=== PATIENT | female | born 1990 | race African-American/Black ===

== ENCOUNTER 2018-01-11 13:26 | Emergency (ER) | payer BC, SELFPAY | END 2018-01-11 14:05 | disposition home or self-care (01) | LOC: ERS 13:26 | DX: J06.9 Acute upper respiratory infection, unspecified (principal) | CPT/HCPCS: 99283 ==

== ENCOUNTER 2018-10-27 15:59 | Emergency (ER) | payer SELFPAY | END 2018-10-27 16:20 | disposition home or self-care (01) | LOC: ERS 15:59 | DX: N91.2 Amenorrhea, unspecified (principal); F41.9 Anxiety disorder, unspecified; F32.9 Major depressive disorder, single episode, unspecified | CPT/HCPCS: 99281 ==

== ENCOUNTER 2018-11-20 09:23 | Day surgery (SDC) | payer MEDICAID ==
[2018-11-20 09:57] VITALS: BP 123/84; TEMP 98.3
[2018-11-20 10:03] VITALS: BMI 39.2
[2018-11-20] MEDS ORDERED: Ondansetron ODT 4 MG TAB PO PRN (11:16)
[2018-11-20] MEDS ORDERED: hydrALAZINE 20 MG/ML VIAL SLOW IVP PRN (11:17)
[2018-11-20] MEDS ORDERED: Acetaminophen 500 MG TAB PO SCH (11:30)
--- NOTE | 2018-11-20 11:48 | PDOC.FPROB ---
FMR OB H&P: Medications - Current Home Medications: Medication Instructions Recorded Confirmed Type Acetaminophen [Tylenol Extra 650 mg PO Q6H PRN 30 Days #60 tab 11/20/18 Rx Strength] Cephalexin [Keflex] 1 tab PO BID 11/20/18 11/20/18 History Ferrous Sulfate 325 mg PO BID 30 Days #60 tablet 11/20/18 Rx Ondansetron [Zofran ODT] 4 mg PO Q6H PRN 30 Days #30 tab 11/20/18 Rx Allergies/Adverse Reactions: Allergies Allergy/AdvReac Type Severity Reaction Status Date / Time No Known Allergies Allergy Verified 11/20/18 10:00 FMR OB H&P: Vital Signs - Maternal Vital signs: Vital Signs - First Documented Temp Pulse Resp BP Pulse Ox 98.3 F 101 H 18 123/84 99 11/20/18 09:09 11/20/18 09:09 11/20/18 09:09 11/20/18 09:09 11/20/18 09:09 FMR OB H&P: A/P - Problem List (1) Status: Acute (2) Neurofibromatosis, type 1 Status: Acute Discussion: Date/Time: 11/20/18 1146 This H&P was discussed with [] and [] who agree with the above documentation and plan. Signature: PCP: Krishna HPI: This is a 28 yo female at 35.1 wks by 33.4 wk US who comes in for diffuse body aches. She was scheduled for MRI this AM but was unable to complete the MRI because it hurt to much to lay on her back for the 30 minutes required for the test. She states she has had nausea and vomiting going on for a weeks, vomits 1-2 times per day, no blood. She denies fevers, chills, or sweats. She complains of upper and lower back pain, achy. Better with rest. Also complains of abdominal pain more on the right side, she does not really remember what contractions feel like but does not think it is like contractions. Pain is worse when laying on her back. She denies trying any Tylenol at home. Was able to eat steak and fries for supper last night without and vomiting. Denies burning or blood with urination. She affirms movement, denies cxns, ROM, bleeding/discharge. Denies SOTO, visual changes, SOB, or swelling. History: OB hx: emergency after cytotec placement per patient report PMH: NF-1, anxiety PSH: c/s x1 Meds: PNV, iron, sertraline (stopped 2 months ago) All: NKDA Soc Hx: denies smoking, alcohol, drugs Fam Hx: denies downs, congenital defects REVIEW OF SYSTEMS: Gen: no fever, chills, or sweats Neuro: no numbness/tingling, no weakness, denies headache ENT: denies congestion Eyes: no visual changes Resp: occasional cough, no production, no SOB, no wheeze Card: denies chest pain, no palpitations GI: see hpi : no dysuria, no hematuria Skin: no rash, no erythema Psych: denies hx anxiety/depression Vitals: T: 98.3 R: 18 BP: 123/84 P:67 at: 98% on RA PHYSICAL EXAMINATION: General: NAD, alert and oriented x3 HEENT: EOMI, normal sclera Neck: Supple. Full ROM. Heart/Cardiovascular System: RRR, Cap refill < 3 seconds, no rub, no murmur Lungs/Respiratory System: clear to auscultation bilaterally. No increased work of breathing. Room air. Abdomen/Gastro-Intestinal System: no abdominal tenderness, normal bowel sounds, Gravid, pain to deep palpation of round ligament on R, no guarding, soft Extremities: Warm extremities. No cyanosis or edema. Neuro: No gross deficits appreciated Psychiatry: Awake, Alert and cooperative with exam Skin: Stable fibromas Musculoskeletal: Full ROM A/P: This is a 28 yo female at 35.1 wks by 33.4 wk US presenting for body aches FHT: 140 baseline, mod variability, no decels, accels present [place]: irregular contractions, resolved with PO hydration # - GBS taken - Tolerated PO hydration - Has follow up today in clinic at 3pm - Closed/thick/posterior, no change after 2 hours # Round ligament pain - Sent Rx for Tylenol, Zofran - Return precautions discussed at length # NF 1 - unable to tolerate MRI, paged M for delivery recs, awaiting return call Addendum - Attending - Attending Attestation Date/Time: 11/20/18 5619 I personally evaluated the patient and discussed the management with Dr. Simeon I agree with the History, Examination, Assessment and Plan documented above with any addition or exceptions noted below. No evidence of labor. Educated on common pains in late . Return precautions reviewed
--- NOTE | 2018-11-20 11:54 | PDOC.FPROB ---
FMR OB H&P: Medications - Current Home Medications: Medication Instructions Recorded Confirmed Type Acetaminophen [Tylenol Extra 650 mg PO Q6H PRN 30 Days #60 tab 11/20/18 Rx Strength] Cephalexin [Keflex] 1 tab PO BID 11/20/18 11/20/18 History Ferrous Sulfate 325 mg PO BID 30 Days #60 tablet 11/20/18 Rx Ondansetron [Zofran ODT] 4 mg PO Q6H PRN 30 Days #30 tab 11/20/18 Rx Allergies/Adverse Reactions: Allergies Allergy/AdvReac Type Severity Reaction Status Date / Time No Known Allergies Allergy Verified 11/20/18 10:00 FMR OB H&P: Vital Signs - Maternal Vital signs: Vital Signs - First Documented Temp Pulse Resp BP Pulse Ox 98.3 F 101 H 18 123/84 99 11/20/18 09:09 11/20/18 09:09 11/20/18 09:09 11/20/18 09:09 11/20/18 09:09 FMR OB H&P: A/P - Problem List (1) Current Visit: Yes Status: Acute (2) Neurofibromatosis, type 1 Current Visit: Yes Status: Acute Discussion: Date/Time: 11/20/18 1151 This H&P was discussed with [] and [] who agree with the above documentation and plan.
== END 2018-11-20 12:40 | disposition home or self-care (01) ==
LOC: L&D/OP 09:23
PROVIDERS: ATTEND Family Medicine
DX: O99.89 Other specified diseases and conditions complicating pregnancy, childbirth and the puerperium (principal); Q85.01 Neurofibromatosis, type 1; R10.2 Pelvic and perineal pain; Z79.2 Long term (current) use of antibiotics; Z3A.35 35 weeks gestation of pregnancy
CPT/HCPCS: 87077; 87081; 99284; Q0162

== ENCOUNTER 2018-11-29 19:04 | Day surgery (SDC) | payer MEDICAID, OTHER ==
[~2018-11-29 19:04] MED LIST: Acetaminophen 500 MG TAB PO SCH
[2018-11-29 19:37] VITALS: BP 118/68; TEMP 98
[2018-11-29 19:38] VITALS: BMI 36.9
[2018-11-29] MEDS ORDERED: hydrALAZINE 20 MG/ML VIAL SLOW IVP PRN (19:43)
[2018-11-29] MEDS ORDERED: Acetaminophen 500 MG TAB PO SCH (19:45)
--- NOTE | 2018-11-29 19:55 | PDOC.FPROB ---
FMR OB H&P: HPI - History of Present Illness Chief Complaint: back pain and pressure in bottom History of Present Illness: 28 y/o , @36.3 wks presents to the L&D for back pain and pressure in her bottom. She states this started last night and has been constant, 10/10 and radiating down her bilateral lower extremities. She has never experienced this before. Denies any LOF, VB, VD, and states she feels baby moving. Pt c/o of SOB worse with exertion. Denies any chest pain. c/o headache 5/10. c/o anxiousness. Primary Care Physician: Dr. Simeon. FMR OB H&P: Current - Care : 2 Para: 1 Gestational age: 36.3 Due date: repeat scheduled 12/19. - OB Labs Blood type: O RH: positive Antibody Screen: negative HIV: negative RPR: negative HepBsAg: negative Rubella: immune Urine drug screen: negative Gonorrhea: negative Chlamydia: negative A1c: 4.9 GBS: unknown FMR OB H&P: History - Past Medical History PMH: NF 1 with neurofibromas and brain tumor, anxiety, depression - OB History OB History: prior for failure to dilate. - RECOVERY COORDINATOR History RECOVERY COORDINATOR History: ASCUS HPV + - Surgical History Sx History: 2013 - Social History Social History: denies etoh, tobacco and drug use. Feels safe at home. - Family History Family History: NF1 in father mother: DM, HTN, HLD FMR OB H&P: Medications - Current Home Medications: Medication Instructions Recorded Confirmed Type Ferrous Sulfate 325 mg PO BID 30 Days #60 tablet 11/20/18 11/29/18 Rx Ondansetron [Zofran ODT] 4 mg PO Q6H PRN 30 Days #30 tab 11/20/18 11/29/18 Rx Amoxicillin 875 mg PO BID #14 tablet 11/29/18 Rx Allergies/Adverse Reactions: Allergies Allergy/AdvReac Type Severity Reaction Status Date / Time No Known Allergies Allergy Verified 11/29/18 19:40 FMR OB H&P: ROS - Review of Systems General: reports: fatigue. denies: fever/chills, weight/appetite/sleep changes Eyes: denies: eye pain, double vision, scotomas ENT: denies: nasal congestion, rhinorrhea, sore throat Cardiovascular: denies: chest pain, palpitation, edema Respiratory: reports: shortness of breath, exercise intolerance. denies: cough , congestion Gastrointestinal: reports: abdominal pain, cramping, nausea, vomiting, diarrhea. denies: constipation, bright red blood, dark black tarry stools Genitourinary (Female): reports: vaginal pressure. denies: incontinence, dysuria, hematuria, polyuria, hesitancy, vaginal discharge, vaginal pain, vaginal bleeding, contractions Musculoskeletal: reports: pain (back pain) Neurologic: reports: headache. denies: numbness, syncope, weakness, loss of counsciousness Integumentary: reports: lesions (neurofibromas). denies: rash Endocrine: denies: polyuria Psychological: reports: anxiety. denies: depression FMR OB H&P: Vital Signs - Maternal Vital signs: Vital Signs - First Documented Temp Pulse Resp BP 98.0 F 98 20 118/68 11/29/18 19:36 11/29/18 19:36 11/29/18 19:36 11/29/18 19:36 - Heart Tones Baseline: 130 Variability: moderate Acceleration: present [place] contractions every: none FMR OB H&P: Physical Exam - Physical Exam General: NAD, awake, alert and oriented HEENT: normocephalic and atraumatic, PERRLA, EOMI, MMM, conjunctiva clear, no scleral icterus, grossly normal vision, grossly normal hearing Neck: supple, FROM, trachea midline, no LAD Chest: non-tender to palpation Heart: RRR, normal S1/S2, no murmurs/rubs/gallops, pulses present, no edema General: CTAB, no respiratory distress, good air movement, no rales/rhonchi, no wheezing, no retractions Abdomen: soft, gravid, bowel sound present Deviation from normal: epigastric tenderness Musculoskeletal: normal gait and station, pulses present, FROM in all four extremities, no misalignment/asymmetry, no atrophy Neurological: sensation to pain,touch and proprioception grossly normal, DTR +2 , no clonus, no tremor, no focal deficit Skin: no rash Deviation from normal: neurofibromas on LUE X2, 5 cm in size. Lymphatic: no unusual bruising or bleeding Psychiatric: intact recent and remote memory, good judgement and insight, normal mood and affect FMR OB H&P: Results - Labs Lab results: Laboratory Tests 11/29/18 21:17 Urine Protein 50 A Urine Nitrite 2+ A Ur Leukocyte Esterase 75 A Urine RBC 4-6 A Urine WBC 11-20 A Calcium Oxalate Crystal 1+ A Urine Bacteria 4+ A Urine Culture Reflexed Yes A FMR OB H&P: A/P Disposition: Pt Stable UTI found, will treat with outpatient amoxicillin. Discharge to home. Discussion: Date/Time: 11/29/18 1950 28 y/o , at 36.3 wks evaluated for back pain radiating down bilateral LE. 1. IUP @ 36.3 weeks gestation -Pt not in labor 2. Hx of NF 1 -[facility] recommends repeat -scheduled on 12/19/18 3. Acute UTI, most likely secondary to cystitis - Prescribed X7 days of Amoxicillin 875 mg BID. - Sent results for CCx. 4. Acute back pain -Most likely secondary to the UTI - Responded to Tylenol 1000 mg This H&P was discussed with Dr. Peter and Dr. Gray who agree with the above documentation and plan.
[2018-11-29 21:27] LABS: Bacteria/HPF 4+ HPF (None Seen); Bilirubin Negative (Negative); Blood, Urine Negative (Negative); Calcium Oxalate Crystals 1+ HPF (None Seen); Clarity Clear (Clear); Glucose, Urine (Dipstick) Normal (Negative); Leukocyte 75 Leu/uL (Negative); Nitrite 2+ (Negative); Protein, Urine (Dipstick) 50 mg/dL (Neg-Trace); Squamous Epithelial 0-3 HPF (0-3)
[2018-11-29 21:29] LABS: Urine Culture Reflex Yes Yes
== END 2018-11-29 21:56 | disposition home or self-care (01) ==
LOC: L&D/OP 19:04
PROVIDERS: ATTEND Family Medicine
DX: O23.43 Unspecified infection of urinary tract in pregnancy, third trimester (principal); O99.89 Other specified diseases and conditions complicating pregnancy, childbirth and the puerperium; M54.9 Dorsalgia, unspecified; Z3A.36 36 weeks gestation of pregnancy
CPT/HCPCS: 81001; 87077; 87086; 87186; 99283

== ENCOUNTER 2018-12-19 08:48 | Inpatient (IN) | payer MEDICAID, OTHER ==
--- NOTE | 2018-12-19 06:29 | PDOC.FPROB ---
FMR OB H&P: Medications - Current Home Medications: Medication Instructions Recorded Confirmed Type Ferrous Sulfate 325 mg PO BID 30 Days #60 tablet 11/20/18 12/19/18 Rx Sertraline HCl [Zoloft] 1 tab PO DAILY 12/19/18 12/19/18 History Allergies/Adverse Reactions: Allergies Allergy/AdvReac Type Severity Reaction Status Date / Time No Known Allergies Allergy Verified 11/29/18 19:40 FMR OB H&P: A/P - Problem List (1) Anemia affecting Current Visit: No Status: Acute Code(s): O99.019 - ANEMIA COMPLICATING , UNSPECIFIED TRIMESTER (2) Obesity (BMI 30-39.9) Current Visit: No Status: Acute Code(s): E66.9 - OBESITY, UNSPECIFIED (3) Neurofibromatosis, type 1 Current Visit: No Status: Acute (4) Current Visit: No Status: Acute Discussion: Date/Time: 12/19/18613 PCP: Krishna HPI: This is a 28 yo female at 39.2 wks by 33 wk US/LMP presenting for scheduled repeat c/s. No complaints at this time. She affirms movement, denies cxns, ROM, bleeding/discharge. Denies SOTO, visual changes, SOB, or swelling. History: OB hx: emergency after cytotec placement per patient report PMH: NF-1, anxiety, anemia PSH: c/s x1 Meds: PNV, iron, sertraline (stopped in 2nd trimester) All: NKDA Soc Hx: denies smoking, alcohol, drugs Fam Hx: denies downs, 1 son has NF-1 and lives with grandmother per CPS intervention GBS: Positive Blood type: O+ Ab screen: neg HIV: neg RPR: neg Hep B: neg Rubella: immune GC/CT: pending A1c: 4.9 REVIEW OF SYSTEMS: Gen: no fever, chills, or sweats Neuro: no numbness/tingling, no weakness, denies headache ENT: denies congestion Eyes: no visual changes Resp: occasional cough, no production, no SOB, no wheeze Card: denies chest pain, no palpitations GI: denies N/V/D : no dysuria, no hematuria Skin: no rash, no erythema Psych: denies hx anxiety/depression Vitals: T: 98.3 R: 18 BP: 122/86 P:88 at: 98% on RA PHYSICAL EXAMINATION: General: NAD, alert and oriented x3 HEENT: EOMI, normal sclera Neck: Supple. Full ROM. Heart/Cardiovascular System: RRR, Cap refill < 3 seconds, no rub, no murmur Lungs/Respiratory System: clear to auscultation bilaterally. No increased work of breathing. Room air. Abdomen/Gastro-Intestinal System: no abdominal tenderness, normal bowel sounds, Gravid Extremities: Warm extremities. No cyanosis or edema. Neuro: No gross deficits appreciated Psychiatry: Awake, Alert and cooperative with exam Skin: Stable fibromas affecting LUE Musculoskeletal: Full ROM A/P: This is a 28 yo at 39.1 weeks by sure LMP/33wk US per [facility] recs EDD12/24/18 presenting for scheduled repeat section FHT: 120 baseline, mod variability, no decels, accels present [place]: irregular contractions 1) . O+. A1C 4.9. IOB labs reviewed. G/CT ordered with Pap and not resulted per chart review, repeated 12/18. Patient never got GTT testing done even though counseled on risks. GBS+ from [place]. 2) NF-1 - MRI ordered per [facility] recs, pt tried to get done a few weeks ago but unable due to pain and not able to sit still. Was evaluated in OB triag, called [facility] they said MRI could wait until post . - Urgent referral for Neuro placed, patient has not established appt. 3) Anemia of pregnacy. hgb 9.7-> 10.7. On PO iron. 4) Asymptomatic UTI. s/p keflex, BERTHA negative. 5) Social Discored. CPS case open on first child, living with grandmother. CASA case hardener following along with this . Pt having hard time getting food. Had pt talk with social manager of exhibitions and collections in clinic. Stated they didn't want our food and wanted meat but having hard time due to rides. - CPS worker is aware of scheduled C/S. CPS will evaluate parental fitness in hospital setting 6) Anxiety- well controlled excited for delivery 7) LGA- measured at [facility] above 99% on first U/S repeat on 11/30 showed [place] 95% , 86% on 12/08. 8) Fam hx: NF in father and child, DM, HTN, HF, ESRD 9) Wt gain: BMI 34, down 6 lbs from max weight. Up 18 lbs since presenting to care. 10) ASCUS, HRHPV: 6 wk PP colpo
[~2018-12-19 08:48] MED LIST changes: +Acetaminophen 500 MG TAB PO PRN; -Acetaminophen 500 MG TAB PO SCH; +Bicitra 30 ML UDCUP PO SCH; +CEFAZOLIN 2 GM in Premix Bag 1 BAG IVPB SCH; +Ondansetron PF 4 MG/2 ML Vial IVP PRN; +Promethazine HCl 25 MG/ML VIAL IM PRN; +hydrALAZINE 20 MG/ML VIAL SLOW IVP PRN
[2018-12-19 09:43] VITALS: BMI 37.0
[2018-12-19 10:27] LABS: Syphilis Antibody Nonreactive (Nonreactive); Syphilis Antibody Index 0.07 S/CO (<1.00 Non-Reactive)
[2018-12-19 10:28] LABS: HBSAg Index 0.14 S/CO (0-0.99); Hep B Surf Ag Non-Reactive S/CO (NonReactive)
[2018-12-19 10:43] LABS: Hemoglobin 10.8 g/dL (12.0-16.0); Mean Corpuscular HGB CONC 33.5 g/dL (32.0-36.0); Mean Corpuscular Hemoglobin 27.1 pg (27.0-31.0); Mean Corpuscular Volume 80.9 fL (78.0-98.0); Mean Platelet Volume 14.2 fL (7.4-10.4); Platelet Count 124 thou/uL (130-400); RBC Distribution Width 20.5 % (11.5-14.5); Red Blood Cell (RBC) Count 3.99 mill/uL (4.20-5.40)
[2018-12-19] MEDS ORDERED: Rocuronium Bromide 10 MG/ML (10ML VIAL) ONE (11:52)
[2018-12-19] MEDS ORDERED: Succinylcholine Chloride 20 MG/ML 10 ml SYRINGE FS ONE (11:52)
[2018-12-19] MEDS ORDERED: Fentanyl 100 MCG/2 ML VIAL ONE ×2 (11:52→12:29)
[2018-12-19] MEDS ORDERED: PROPOFOL 20 ML ONE (11:52)
[2018-12-19] MEDS ORDERED: Lidocaine 1% PF 5 ML VIAL ONE (11:52)
[2018-12-19] MEDS ORDERED: PHENYLEPHRINE-NS 100 MCG/ML 10 ML SYRINGE ONE (11:53)
[2018-12-19] MEDS ORDERED: ePHEDrine/0.9% NaCl/PF SYRINGE 50 mg/10 ml ONE (11:53)
[2018-12-19] MEDS ORDERED: Oxytocin 10 UNITS/ML VIAL ONE ×2 (11:54→12:37)
[2018-12-19] MEDS ORDERED: Ondansetron PF 4 MG/2 ML Vial ONE (11:54)
[2018-12-19] MEDS ORDERED: Midazolam HCl 2 mg/2 ml Vial ONE (11:58)
[2018-12-19] MEDS: Lactated Ringer's 1,000 ML IV SCH ×3 (12:00→16:55)
[2018-12-19] MEDS ORDERED: Glycopyrrolate 0.2 MG/ML 5 ML SYRINGE ONE (12:24)
[2018-12-19] MEDS ORDERED: Ondansetron PF 4 MG/2 ML Vial IVP PRN (12:26)
[2018-12-19] MEDS ORDERED: HYDROmorphone 2 MG/ML VIAL SLOW IVP PRN (12:26)
[2018-12-19] MEDS ORDERED: Ondansetron HCl/PF 4 MG/2 ML Vial IVP PRN (12:26)
[2018-12-19] MEDS ORDERED: Meperidine HCl/PF 25 MG/ML VIAL SLOW IVP PRN (12:26)
[2018-12-19] MEDS ORDERED: Zolpidem Tartrate 5 MG TAB PO PRN (12:26)
[2018-12-19] MEDS ORDERED: diphenhydrAMINE 25 MG CAP PO PRN (12:26)
[2018-12-19] MEDS ORDERED: L&D-Morphine 4 MG/ML VIAL SLOW IVP PRN (12:26)
[2018-12-19] MEDS ORDERED: diphenhydrAMINE 50 MG/ML VIAL IVP PRN (12:26)
[2018-12-19] MEDS ORDERED: diphenhydrAMINE 50 MG/ML VIAL IM PRN (12:26)
[2018-12-19] MEDS ORDERED: fentaNYL Citrate/PF 2,000 MCG in Sodium Chloride 0.9% 60 ML IV PRN (12:26)
[2018-12-19] MEDS ORDERED: Naloxone HCl 0.4 mg/ml Vial IV PRN (12:26)
[2018-12-19] MEDS ORDERED: Promethazine HCl 25 MG/ML VIAL IM PRN (12:26)
[2018-12-19] MEDS ORDERED: Esmolol 100 MG/10 ML VIAL ONE (12:29)
[2018-12-19] MEDS ORDERED: Communication Order-Pharmacy FS SCH (12:30)
[2018-12-19] MEDS ORDERED: Ketorolac Tromethamine 30 MG/ML VIAL IVP SCH (12:30)
[2018-12-19 12:40] LABS: pH (Cord, venous) 7.28 (7.32-7.43)
[2018-12-19] MEDS ORDERED: Ketorolac Tromethamine 30 MG/ML VIAL ONE (13:06)
[2018-12-19] MEDS ORDERED: Lanolin Ointment 7 GM TUBE TOP PRN (13:12)
[2018-12-19] MEDS ORDERED: Simethicone Chewable 80 MG TAB PO PRN (13:12)
[2018-12-19] MEDS ORDERED: HYDROcodone/Acetaminophen 5/325 mg Tablet PO PRN (13:12)
[2018-12-19] MEDS ORDERED: Methylergonovine 0.2 MG TAB PO PRN (13:12)
[2018-12-19] MEDS ORDERED: Adacel (T-DAP) 0.5 ML SYRINGE IM ONE (13:12)
[2018-12-19] MEDS ORDERED: Bisacodyl 10 MG SUPP PR PRN (13:12)
[2018-12-19] MEDS ORDERED: hydrALAZINE 20 MG/ML VIAL SLOW IVP PRN (13:12)
[2018-12-19] MEDS ORDERED: Methylergonovine 0.2 MG/ML VIAL IM PRN (13:12)
[2018-12-19] MEDS ORDERED: Acetaminophen 325 MG TAB PO PRN (13:12)
[2018-12-19] MEDS ORDERED: Misoprostol 200 MCG TAB PR PRN (13:12)
--- NOTE | 2018-12-19 13:28 | PDOC.OPDEL ---
OB Operative/Delivery Note - Additional Findings/Plan Compilations/Other Findings: Procedure Note Date of Procedure: 12/19/18 Resident Surgeon: Dr Franko Simeon, Dr Luis Marquez Attending Surgeon: Dr. Chris Michael Procedure: Repeat low transverse caesarean section Preoperative Diagnosis: 1) Term intrauterine 2) Neurofibromatosis type 1 3) Anemia of 4) LGA Postoperative Diagnosis: 1) Term intrauterine 2) Neurofibromatosis type 1 3) Anemia of 4) LGA Anesthesia: general anesthesia Indications: 28 yo at 39.2 wks presents for scheduled repeat section. Procedure in Detail: After risks, benefits, and alternatives were explained to the patient, she gave informed consent. Pre-operative antibiotics included ancef. The patient was taken to the operating room and general anesthesia was placed 2/2 difficulty obtaining spinal with prior c/s and no recent imaging to eval for fibroma affecting spine. She was placed in the supine position with a left tilt and prepped and draped in usual sterile fashion. A Pfannenstiel incision was made with a scalpel and carried down to the level of the fascia which was sharply nicked. The fascial cut was extended bilaterally with Salomon scissors. The inferior and superior edges of the cut fascial edges were elevated with Cheri clamps and the underlying rectus muscles were sharply and bluntly dissected free. The recti were divided digitally. The peritoneum was entered bluntly and retracted manually. A tough fibrous portion was cut using salomon scissors inferiorly after inspecting for bladder to confirm space for baby. Bladder blade was put into position. A low transverse score was made with the scalpel and the uterus was entered in the midline with the scalpel. Light mec stained fluid was seen. The hysterotomy was extended manually. The was noted to be vertex and was easily delivered by fundal pressure. Mouth and nares were bulb suctioned. Cord clamped and cut and grossly normal female infant was handed to waiting nurse. Cord blood was obtained. Placenta was manually extracted, found to be intact with 3 vessel cord and discarded. The uterus was externalized and the endometrium was curetted with a dry lap. The hysterotomy was closed with a running locking 0-Monocryl in the usual fashion. Following this hemostasis was noted. Uterus was internalized and the hysterotomy was again noted to be hemostatic. The posterior gutter was examined and irrigated, found to be free from lesion. The fascia was closed with a running non-locking 0-PDS suture. The subcutaneous tissue was irrigated and there were no bleeders. The subcutaneous layer was approximated with a running non-locking series of 3-0 plain gut. The skin was approximated with 1-0 monocryl on a kvng needle and a pressure dressing was placed. All counts were correct. The patient tolerated the procedure well and was taken to the recovery room in stable condition. QBL: 630ml Complications: None Specimens: Cord blood sent to lab for blood type Findings: Grossly normal female . Grossly normal placenta with 3 vessel cord discarded. Drains: [place] to gravity draining clear urine
[2018-12-19] MEDS ORDERED: Morphine 4 MG/ML VIAL ONE (14:36)
[2018-12-19] MEDS ORDERED: Morphine 4 MG/ML VIAL SLOW IVP SCH (14:45)
[2018-12-19] MEDS ORDERED: Acetaminophen 1,000 MG in Premix Bag 1 BAG IVPB SCH (14:45)
[2018-12-19 16:16] LABS: Amphetamine Not Detected (NotDetected); Barbiturates Screen Not Detected (NotDetected); Benzodiazepine Screen Not Detected (NotDetected); Cocaine Metabolite Screen Not Detected (NotDetected); Medtox Control Line Valid? VALID (VALID); Medtox Reader # READER 4; Methadone Not Detected (NotDetected); Methamphetamine Not Detected (NotDetected); Opiate Screen Not Detected (NotDetected); Oxycodone Screen Not Detected (NotDetected); Phencyclidine (PCP) Not Detected (NotDetected); THC/Cannabinoid Screen Not Detected (NotDetected); Tricyclic Screen Not Detected (NotDetected)
[2018-12-19] MEDS: Ketorolac Tromethamine 30 MG/ML VIAL IVP SCH (18:16)
[2018-12-19] MEDS: Docusate Calcium (SURFAK) 240 MG CAP PO SCH (22:28)
[2018-12-19] MEDS: Ferrous Sulfate 325 MG TAB PO SCH (22:28)
[2018-12-20] MEDS: Ketorolac Tromethamine 30 MG/ML VIAL IVP SCH ×3 (00:26→12:51)
[2018-12-20 05:32] LABS: Hemoglobin 9.5 g/dL (12.0-16.0); Mean Corpuscular Hemoglobin 27.1 pg (27.0-31.0); Mean Corpuscular Volume 82.2 fL (78.0-98.0); Platelet Count 91 thou/uL (130-400); RBC Distribution Width 20.4 % (11.5-14.5); Red Blood Cell (RBC) Count 3.51 mill/uL (4.20-5.40); White Blood Cell (WBC) Count 5.3 thou/uL (4.8-10.8)
--- NOTE | 2018-12-20 09:24 | PDOC.PP ---
Post Progress Note Post Day #: 1 Subjective: Pt reports doing well. Resting in bed. Reports pain being well controlled. No acute concerns. Reports lochia as light. Denies any lighthedness or weakness. Hasn't eaten a full meal yet. Ordered breakfast PO intake tolerated: yes Flatus: yes Ambulation: yes Vital Signs (12 hours) Temp Pulse Resp BP Pulse Ox 12/20/18 08:00 98.4 F 72 14 118/68 98 12/20/18 04:26 98.7 F 83 18 100/55 L 95 12/20/18 00:22 97.6 F 83 18 100/56 L 97 Weight Weight 107.501 kg - Physical Examination General: NAD Cardiovascular: no m/r/g, RRR Respiratory: clear to auscultation bilaterally, non-labored breathing Abdominal: + bowel sounds, lochia (Reports as light), no distention, appropriately TTP Fundus firm & at: at umbilicus Extremities: negative homans (B) Skin: CS incision dry & intact (No sign of drainage. Appropriately tender), no rash Neurological: no gross focal deficits Psychiatric: A&Ox3, normal affect Result Diagrams: 12/20/18 05:05 Additional Labs: Post Labs Blood Type O POSITIVE 12/19/18 10:09 Hep Bs Antigen Non-Reactive S/CO (NonReactive) 12/19/18 09:36 (1) Anemia affecting Code(s): O99.019 - ANEMIA COMPLICATING , UNSPECIFIED TRIMESTER Status : Acute (2) Neurofibromatosis, type 1 Status: Acute (3) Obesity (BMI 30-39.9) Code(s): E66.9 - OBESITY, UNSPECIFIED Status: Acute (4) Status: Acute - Assessment/Plan This is a 28 yo at 39.1 weeks by sure LMP/33wk delivered JOSE JUAN Olmedo via rLTCS on 12/19/18 #Post Post Op day 1 Routine Post care Lochia light. Pain well controlled. #NF-1 - MRI ordered per [facility] recs, pt tried to get done a few weeks ago but unable due to pain and not able to sit still. Was evaluated in OB triag, called M they said MRI could wait until post . - Urgent referral for Neuro placed, patient has not established appt. #Anemia of pregnacy- 10.7->9.5. QBL 600. continue PO Iron #Social Discored. CPS case open on first child, living with grandmother. CM consulted. Will await recs. - CPS worker is aware of scheduled C/S. CPS will evaluate parental fitness in hospital setting #)Fam hx: NF in father and child, DM, HTN, HF, ESRD #Obesity- BMI 34, down 6 lbs from max weight. Up 18 lbs since presenting to care.
[2018-12-20] MEDS: Docusate Calcium (SURFAK) 240 MG CAP PO SCH ×2 (09:28→21:08)
[2018-12-20] MEDS: Prenatal Vitamin 1 TAB PO SCH (09:28)
[2018-12-20] MEDS: Ferrous Sulfate 325 MG TAB PO SCH ×2 (09:28→21:08)
[2018-12-20] MEDS: HYDROcodone/Acetaminophen 5/325 mg Tablet PO PRN ×2 (09:48→17:05)
[2018-12-20] MEDS: Ibuprofen 800 MG TAB PO SCH ×2 (14:29→21:08)
[2018-12-21] MEDS: Ibuprofen 800 MG TAB PO SCH ×2 (05:40→14:40)
--- NOTE | 2018-12-21 07:05 | PDOC.PP ---
Post Progress Note Post Day #: 2 Subjective: Patient states she is feeling well this AM. Only ibuprofen overnight for pain. Eating well. Ambulating. BM without diffiuculty. Less bleeding than regular menses. No N/V/D. PO intake tolerated: yes Flatus: yes Ambulation: yes Vital Signs (12 hours) Temp Pulse Resp BP Pulse Ox 12/21/18 04:20 97.9 F 92 16 102/53 L 12/21/18 00:05 98.4 F 96 16 104/57 L 12/20/18 19:34 98.4 F 108 H 20 114/57 L 95 Weight Weight 107.501 kg - Physical Examination General: NAD Cardiovascular: no m/r/g, RRR Respiratory: clear to auscultation bilaterally, non-labored breathing Abdominal: + bowel sounds, lochia, no distention, appropriately TTP Fundus firm & at: 2cm below umbilicus Extremities: negative homans (B) Skin: CS incision dry & intact, no rash Neurological: no gross focal deficits Psychiatric: A&Ox3, normal affect Result Diagrams: 12/20/18 05:05 Additional Labs: Post Labs Blood Type O POSITIVE 12/19/18 10:09 Hep Bs Antigen Non-Reactive S/CO (NonReactive) 12/19/18 09:36 (1) Anemia affecting Code(s): O99.019 - ANEMIA COMPLICATING , UNSPECIFIED TRIMESTER Status : Acute (2) Obesity (BMI 30-39.9) Code(s): E66.9 - OBESITY, UNSPECIFIED Status: Acute (3) Neurofibromatosis, type 1 Status: Acute (4) Status: Acute - Assessment/Plan #Post Post Op day 2 Routine Post care Lochia light. Pain well controlled. #NF-1 - MRI ordered per [facility] recs for f/u on chronic condition - Urgent referral for Neuro placed in clinic, patient has not established appt. #Anemia of pregnacy- 10.7->9.5. QBL 600. continue PO Iron #Social Discored. CPS case open on first child, living with grandmother. CM consulted. Will await recs. - CPS worker is aware of scheduled C/S. CPS will evaluate parental fitness in hospital setting. - Per CM notes they are working on removal paperwork Dispo: patient would prefer to stay until tomorrow.
[2018-12-21 07:59] VITALS: BP 120/65; TEMP 98.6
[2018-12-21] MEDS: Ferrous Sulfate 325 MG TAB PO SCH (08:56)
[2018-12-21] MEDS: Prenatal Vitamin 1 TAB PO SCH (08:56)
[2018-12-21] MEDS: Docusate Calcium (SURFAK) 240 MG CAP PO SCH (08:56)
[2018-12-21] MEDS: HYDROcodone/Acetaminophen 5/325 mg Tablet PO PRN (08:57)
--- NOTE | 2018-12-21 09:32 | PDOC.EVN ---
Event Note - Event Note Event Note: Patient could not tolerate MRI, said laying down flat was too uncomfortable awaiting discussions with CPS today, likely not a good time for sedation, will plan to try again once outpatient
[2018-12-21] MEDS ORDERED: Ibuprofen 800 MG TAB PO SCH (22:00)
== END 2018-12-21 18:00 | disposition home or self-care (01) | DRG 788 ==
LOC: L&D-LIB 08:48 → 3SW 15:36
PROVIDERS: ADMIT Family Medicine; ATTEND Family Medicine
PROC: 10D00Z1 Extraction of Products of Conception, Low, Open Approach (ICD-10-PCS; principal; 2018-12-19)
DX: O34.211 Maternal care for low transverse scar from previous cesarean delivery (principal); O36.63X0 Maternal care for excessive fetal growth, third trimester, not applicable or unspecified; O99.344 Other mental disorders complicating childbirth; O99.02 Anemia complicating childbirth; O99.214 Obesity complicating childbirth; O99.824 Streptococcus B carrier state complicating childbirth; O77.0 Labor and delivery complicated by meconium in amniotic fluid; O99.89 Other specified diseases and conditions complicating pregnancy, childbirth and the puerperium; E66.9 Obesity, unspecified; F41.9 Anxiety disorder, unspecified; D64.9 Anemia, unspecified; Z37.0 Single live birth; Z3A.39 39 weeks gestation of pregnancy; Q85.01 Neurofibromatosis, type 1
CPT/HCPCS: 36415; 80306; 82805; 85027; 86780; 86850; 86900; 86901; 87340; 90715; J0131; J0690; J1200; J1885; J2001; J2250; J2270; J2405; J2590; J2704; J3010; J3490

== ENCOUNTER 2020-06-11 16:37 | Emergency (ER) | payer MEDICAID, OTHER | END 2020-06-11 17:10 | disposition home or self-care (01) | LOC: ERS 16:37 | DX: R11.2 Nausea with vomiting, unspecified (principal); F17.210 Nicotine dependence, cigarettes, uncomplicated; Z20.822 Contact with and (suspected) exposure to COVID-19 | CPT/HCPCS: 87635; 99283; U0003; U0005 ==

== ENCOUNTER 2020-07-20 12:51 | Emergency (ER) | payer MEDICAID ==
[2020-07-20] MEDS ORDERED: Ketorolac Tromethamine 30 MG/ML VIAL ONE (16:21)
[2020-07-20] MEDS ORDERED: Acetaminophen 500 MG TAB ONE (16:21)
[2020-07-20] MEDS ORDERED: Ondansetron ODT 4 MG TAB ONE (16:21)
== END 2020-07-20 17:41 | disposition home or self-care (01) ==
LOC: ERS 12:51
DX: R51.9 Headache, unspecified (principal); R11.0 Nausea; F17.210 Nicotine dependence, cigarettes, uncomplicated
CPT/HCPCS: 70450; 96372; J1885; Q0162

== ENCOUNTER 2021-01-19 08:25 | Emergency (ER) | payer SELFPAY ==
[2021-01-19] MEDS ORDERED: Ondansetron ODT 4 MG TAB ONE (09:25)
[2021-01-19 12:27] LABS: SARS-CoV-2 PCR by NAA DETECTED (NotDetected)
== END 2021-01-19 10:12 | disposition home or self-care (01) ==
LOC: ERS 08:25
DX: U07.1 COVID-19 (principal); F17.210 Nicotine dependence, cigarettes, uncomplicated
CPT/HCPCS: 99284; Q0162; U0003; U0005

== ENCOUNTER 2021-07-26 01:02 | Emergency (ER) | payer MEDICAID, OTHER, SELFPAY ==
[2021-07-26] MEDS ORDERED: Ondansetron ODT 4 MG TAB ONE (01:35)
[2021-07-26 12:28] LABS: SARS-CoV-2 PCR by NAA Not Detected (NotDetected)
== END 2021-07-26 04:00 | disposition home or self-care (01) ==
LOC: ERS 01:02
DX: B34.9 Viral infection, unspecified (principal); F17.210 Nicotine dependence, cigarettes, uncomplicated; Z20.822 Contact with and (suspected) exposure to COVID-19
CPT/HCPCS: 87804; 99284; Q0162; U0003; U0005

== ENCOUNTER 2021-09-15 09:43 | Emergency (ER) | payer SELFPAY ==
[2021-09-15 12:47] LABS: Bacteria/HPF 2+ HPF (None Seen); Bilirubin Negative (Negative); Blood, Urine Negative (Negative); Clarity Clear (Clear); Glucose, Urine (Dipstick) Normal (Negative); Ketone, Urine Negative (Negative); Leukocyte Negative Leu/uL (Negative); Nitrite 2+ (Negative); Pregnancy Test - Urine (BHCG) Negative (Negative); Pregu Control Background? CLEAR/WHITE (CLR/WHITE); Pregu Control Bar Appear? YES (CONTROL BAR); Protein, Urine (Dipstick) Negative (Neg-Trace); RBC/HPF None Seen HPF (0-3); Specific Gravity 1.024 (1.002-1.036); Specific Gravity, Urine 1.024 (1.002-1.036); Squamous Epithelial 0-3 HPF (0-3); Urobilinogen Normal mg/dL (Less than 2); WBC/HPF 0-3 HPF (0-3)
== END 2021-09-15 13:23 | disposition home or self-care (01) ==
LOC: ERS 09:43
DX: N39.0 Urinary tract infection, site not specified (principal)
CPT/HCPCS: 81003; 81015; 81025; 99283